=== PATIENT | female | born 1995 | race Caucasian/White ===

== ENCOUNTER 2016-07-14 12:24 | Emergency (ER) | payer OTHER ==
[2016-07-14 16:19] VITALS: BP 120/69
== END 2016-07-14 16:38 | disposition left against medical advice (07) ==
LOC: ED 12:24
DX: M54.9 Dorsalgia, unspecified (principal); Z53.21 Procedure and treatment not carried out due to patient leaving prior to being seen by health care provider
CPT/HCPCS: 99281